=== PATIENT | female | born 1965 | race American Indian/Alaskan Native ===

== ENCOUNTER 2016-09-29 08:21 | Emergency (ER) | payer OTHER, MEDICAID ==
[2016-09-29 08:39] VITALS: BP 129/82
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
== END 2016-09-29 09:28 | disposition home or self-care (01) ==
LOC: ED 08:21
DX: S13.4XXA Sprain of ligaments of cervical spine, initial encounter (principal); I10 Essential (primary) hypertension; K21.9 Gastro-esophageal reflux disease without esophagitis; J45.909 Unspecified asthma, uncomplicated; Z90.49 Acquired absence of other specified parts of digestive tract; Z87.891 Personal history of nicotine dependence; V89.2XXA Person injured in unspecified motor-vehicle accident, traffic, initial encounter; Y93.89 Activity, other specified; Y99.8 Other external cause status; Y92.89 Other specified places as the place of occurrence of the external cause
CPT/HCPCS: 99282

== ENCOUNTER 2020-10-19 17:04 | Emergency (ER) | payer MEDICAID ==
[2020-10-19 17:22] VITALS: BP 116/78
--- NOTE | 2020-10-19 17:53 | Emergency Department Report ---
Chief Complaint: Pain General Stated Complaint: BODY PAIN Time Seen by Provider: 10/19/20 17:22 - HPI History of Present Illness: Patient is a 55-year-old female presents emergency room with complaints of a lump under the left axilla that began a week ago. She states that she last had a mammogram in June 2020 and was advised to return in a year. She denies any nipple discharge, drainage, fever, chills, nausea, vomiting, diarrhea. She has not called her TRUCK ENGINE TECHNICIAN regarding this complaint. No past medical history. No allergies to medications. Vitals are stable Small 2 cm nodule to the left lateral breast, no peau d'orange, no nipple drainage, no signs of infection Examination appears consistent with breast nodule Given that it is tender to palpation likely consistent with fibrocystic breast versus fibroadenoma She has no inflammatory changes or signs of infection at this time Patient will be referred to TRUCK ENGINE TECHNICIAN for further evaluation and examination Advised patient May alternate Tylenol and then ibuprofen as needed for discomfort. May take fish oil supplements [id number]. May use warm compresses to the region. Please avoid caffeine, coffee, chocolate. Follow-up with your casing cooker. Return to emergency room for any new or worsening symptoms. - Exam Vital Signs: Vital Signs 10/19/20 17:16 Temperature 99.2 F Pulse Rate 86 Respiratory 18 Rate Blood Pressure 116/78 O2 Sat by Pulse 99 Oximetry MSE screening note: Focused history and physical exam performed. ED Disposition for MSE Clinical Impression: Breast nodule Disposition: Z-[id number] MED SCREENING EXAM-LEFT Is pt being admited?: No Does the pt Need Aspirin: No Condition: Stable Instructions: Fibroadenoma, [id number], Fibrocystic Breast Changes Additional Instructions: May alternate Tylenol and then ibuprofen as needed for discomfort. May take fish oil supplements [id number]. May use warm compresses to the region. Please avoid caffeine, coffee, chocolate. Follow-up with your casing cooker. Return to emergency room for any new or worsening symptoms. Referrals: your, caramel candy maker helper [Other] - 3-5 Days Time of Disposition: 17:53 Print Language: PASHTO
== END 2020-10-19 17:53 | disposition left against medical advice (07) ==
LOC: ED 17:04
DX: N63.0 Unspecified lump in unspecified breast (principal); Z53.21 Procedure and treatment not carried out due to patient leaving prior to being seen by health care provider